=== PATIENT | female | born 1995 | race Caucasian/White ===

== ENCOUNTER 2017-07-15 13:37 | Emergency (ER) | payer MEDICAID ==
[~2017-07-15] VITALS: Ht 149.9 cm; Wt 47.5 kg
[2017-07-15 13:52] VITALS: Ht 149.9 cm; Wt 47.5 kg
[2017-07-15] MEDS ORDERED: BACI28.34 TOP (16:24)
[2017-07-15] MEDS ORDERED: CEPH-443 PO (16:24)
[2017-07-15] MEDS ORDERED: DIPHTH/TET/ACEL PERTUSS (ADULT) 0.5 ML VIAL IM* ONE (16:30)
--- NOTE | 2017-07-15 16:35 | ERD ---
ER Documentation Chief Complaint Date/Time DATE: 07/15/17 TIME: 16:29 Chief Complaint LEFT HAND, FINGER LACAERTION DUE TO KITCHEN KNIFE HPI 21-year-old female complaining of a laceration to her left third and fourth digit on the volar aspect over the DIP joint 2 days. Patient was cutting with a knife yesterday. Patient cut her fingers. She has not cleaned the site or use antibiotic ointment or bandage. Patient states she has no difficulty moving her fingers. She is right-hand dominant. Does not recall her last tetanus shot. ROS All systems reviewed and are negative except as per history of present illness. Medications Home Meds Active Scripts Bacitracin* (Bacitracin Zinc Oint*) 28.35 Gm Oint, 1 APPLIC TOP BID, #1 TUB APPLI TO Prov:NEGRITO MULLEN PA-C 07/15/17 Cephalexin* (Keflex*) 500 Mg Capsule, 500 MG PO QID for 7 Days, CAP Prov:NEGRITO MULLEN PA-C 07/15/17 Physical Exam Vitals Vital Signs Date Time Temp Pulse Resp B/P Pulse Ox O2 Delivery O2 Flow Rate FiO2 07/15/17 13:52 98.8 71 18 140/56 100 Physical Exam GENERAL: The patient is well-appearing, well-nourished, in no acute distress CHEST: Clear to auscultation bilaterally. There are no rales, wheezes or rhonchi. HEART: Regular rate and rhythm. No murmurs, clicks, rubs or gallops. No S3 or S4. EXTREMITIES: Equal pulses bilaterally. There is no peripheral clubbing, cyanosis or edema. No focal swelling or erythema. Full range of motion. Grossly neurovascularly intact. NEUROLOGIC: Alert and oriented. Cranial nerves II through XII intact. Motor strength in all 4 extremities with 5 out of 5 strength. Sensation grossly intact. Normal speech and gait. Babinski negative. DTR 2+ throughout. SKIN: Superficial laceration over the DIP joint of the third and fourth digit volar aspect left hand. No tendon or ligament injury. No active bleeding. No retained foreign body. No surrounding erythema. Mild tenderness to palpation. Results 24 hrs Current Medications Medications (Trade) Dose Ordered Sig/Sandra Route PRN Reason Start Time Stop Time Status Last Admin Dose Admin Diphtheria/ Tetanus/Acell Pertussis (Adacel) 0.5 ml ONCE ONCE IM* 07/15/17 16:30 07/15/17 16:31 Procedures/MDM MDM: I have low suspicion for deep space infection. I have low suspicion for tendon or ligament injuries. Patient is able to isolate the DIP and PIP joint. There is no indication for suture closure at this time. Wound has been open for the last 24 hours. Wound will be cleaned with soap and water and bacitracin ointment will be applied a bandage. I have low suspicion for neurodeficit this patient has neurovascularly sensation intact to the distal tip. Cap refill less than 2 seconds. Departure Diagnosis: Primary Impression: Laceration Condition: Stable Patient Instructions: Laceration, Hand Referrals: [facility] YOU HAVE RECEIVED A MEDICAL SCREENING EXAM AND THE RESULTS INDICATE THAT YOU DO NOT HAVE A CONDITION THAT REQUIRES URGENT TREATMENT IN THE EMERGENCY DEPARTMENT. FURTHER EVALUATION AND TREATMENT OF YOUR CONDITION CAN WAIT UNTIL YOU ARE SEEN IN YOUR DOCTORS OFFICE WITHIN THE NEXT 1-2 DAYS. IT IS YOUR RESPONSIBILITY TO MAKE AN APPOINTMENT FOR FOLOW-UP CARE. IF YOU HAVE A PRIMARY DOCTOR --you should call your primary doctor and schedule an appointment IF YOU DO NOT HAVE A PRIMARY DOCTOR YOU CAN CALL OUR PHYSICIAN REFERRAL HOTLINE AT IF YOU CAN NOT AFFORD TO SEE A PHYSICIAN YOU CAN CHOSE FROM THE FOLLOWING [facility] [address] [facility]. [facility] [address] [facility] [facility] [address] [facility] [facility] [address] [facility]. [facility] [address] [facility]. [facility]. [address] Additional Instructions: Call your primary care doctor TOMORROW for an appointment during the next 1 WEEK.Tell the department secretary that you were referred from this facility.See the doctor sooner or return here if your condition worsens before your appointment time. NEGRITO MULLEN PA-C Jul 15, 2017 16:35
== END 2017-07-15 16:45 | disposition home or self-care (01) ==
LOC: FTE 13:37
DX: S61.412A Laceration without foreign body of left hand, initial encounter (principal); W26.0XXA Contact with knife, initial encounter; Y92.9 Unspecified place or not applicable; Z23 Encounter for immunization
CPT/HCPCS: 90471; 90715; Z7502